=== PATIENT | female | born 1990 | race Caucasian/White ===

== ENCOUNTER 2021-12-25 10:12 | Emergency (ER) | payer OTHER, SELFPAY ==
[2021-12-25 10:32] VITALS: BP 115/65; PULSE 60; RESP 20; TEMP 37.3; O2SAT 100
--- NOTE | 2021-12-25 11:16 | ED.GENADULT ---
HPI - General Adult General Chief complaint: Psychiatric Symptoms Stated complaint: Depression per Source: patient Mode of arrival: ambulatory Limitations: no limitations History of Present Illness HPI narrative: Patient presents for evaluation of anxiety. She indicates 10 days ago there was an investigation at work. She states that there were claims made that she was displaying neglect with nonverbal residents at [employer]. She states that the accusations were unfounded. She returned to work three days ago. Yesterday, she was called into the office at work and told that she was only allowed to work with verbal residents. She states she has had difficulty sleeping and feels anxious. She also feels depressed. She has episodes of crying. She attempted to go on to work and was only there for an hour and a half today. She left because she felt emotional. She called her PCP today and was advised she go to urgent care for further evaluation. No SI, HI, AH, VH. She actually has an appointment with her primary care provider on Monday. She does not use any illicit drugs. No additional complaints or concerns. Related Data Home Medications Medication Instructions Recorded Confirmed divalproex 125 mg capsule,delayed 125 mg PO DAILY 12/25/21 12/25/21 release sprinkle sumatriptan succinate 25 mg tablet 25 mg PO ONCE 12/25/21 12/25/21 Allergies Allergy/AdvReac Type Severity Reaction Status Date / Time No Known Allergies Allergy Verified 12/25/21 10:52 Review of Systems Review of Systems: CONSTITUTIONAL: Denies fever, chills, or sweats. EYES: Denies visual changes, redness, or discharge. ENT: Denies rhinorrhea, congestion, sore throat, or otalgia. CARDIOVASCULAR: Denies chest pain, palpitations, or edema. RESPIRATORY: Denies cough or dyspnea. GASTROINTESTINAL: Denies abdominal pain, nausea, vomiting, or diarrhea. GENITOURINARY: Denies dysuria or hematuria. SKIN: Denies rash or itching. MUSCULOSKELETAL: Denies back pain, joint pain, or myalgia. NEUROLOGIC: Denies headache, numbness, dizziness, or weakness. PSYCHIATRIC: Reports anxiety, depression and sleep disturbances. [facility] Past Medical History Medical History Seizure Surgical History Surgical History No pertinent past surgical history Family History Family History Mother Cerebrovascular accident Social History Social History Smoking status: Never smoker Alcohol intake: never Substance use: never Living arrangements: alone Gender identity (if verbalized by the patient): Female Sexual Orientation (if Verbalized by the Patient): Lesbian, Kaur, or Homosexual Spiritual care concerns: No Exam Narrative: GENERAL: Well-appearing, well-nourished, and in no acute distress. HEAD: Normocephalic, atraumatic. EYES: PERRLA and EOMI. ENT: Nares clear, no rhinorrhea or epistaxis. Mucous membranes moist. Oropharynx without tonsillar hypertrophy exudate or other lesions. Bilateral TMs pearly cronin nonbulging NECK: Supple. No adenopathy or masses. No carotid bruits or JVD CHEST: Clear to auscultation. No respiratory distress. No wheezes rales or rhonchi HEART: Regular rate and rhythm. No murmur heard. Normal peripheral pulses. ABDOMEN: Soft, nontender, nondistended, normal active bowel sounds. EXTREMITIES: Normal range of motion. No edema. SKIN: Warm, dry, no rash. NEURO: No focal deficits. Alert and oriented x3. PSYCH: Normal mood and affect. Course Course Emergency Course: This is a 31-year-old female who presented with complaints of anxiety associated with conflicts at work. She has no SI, HI, AH, VH. Her thought process seems clear and logical. She has an appointment on Monday with her PCP. Bashir
== END 2021-12-25 11:23 | disposition home or self-care (01) ==
PROVIDERS: Emergency Provider Nurse Practitioner
DX: F41.9 Anxiety disorder, unspecified (principal); G40.909 Epilepsy, unspecified, not intractable, without status epilepticus
CPT/HCPCS: 99213; G0463